=== PATIENT | female | born 1945 | race Caucasian/White ===

== ENCOUNTER 2019-02-27 05:43 | Day surgery (SDC) | payer MEDICARE ==
[2019-02-25 08:54] VITALS: BP 135/98
[2019-02-25 09:08] LABS: BASOPHILS % (AUTO) 0.4 % (0.0-5.0); EOSINOPHILS % (AUTO) 1.4 % (0.0-8.0); HEMATOCRIT 41.1 % (36-48); MEAN CORPUSCULAR HEMOGLOBIN 31.4 pg (27.0-33.0); MEAN CORPUSCULAR HGB CONC 32.1 g/dL (32.0-36.0); MEAN CORPUSCULAR VOLUME 97.6 fL (79-99); MONOCYTES % (AUTO) 9.4 % (3.0-13.0); NEUTROPHILS % (AUTO) 68.5 % (40.0-77.0); PLATELET COUNT (AUTO) 189 K/uL (130-400); RED BLOOD CELL COUNT(AUTO) 4.21 MIL/uL (4.00-5.50); RED CELL DISTRIBUTION WIDTH 13.8 % (11.0-15.5); WHITE BLOOD COUNT (AUTO) 6.9 K/uL (4.8-10.8)
[2019-02-25 09:26] LABS: INR 1.1 (0.85-1.15); PARTIAL THROMBOPLASTIN TIME 27.7 SEC (26.3-35.5); PROTHROMBIN TIME 11.5 SEC (9.6-11.6)
[2019-02-25 09:37] LABS: CREATININE 1.4 mg/dL (0.5-1.5); POTASSIUM 4.8 mmol/L (3.5-5.1)
--- NOTE | 2019-02-26 13:08 | NUR ---
labs abnormal bun/crea reported to DR. Dubon. message left with Viri. no further orders given.
[2019-02-27] VITALS (8 sets, daily range): BP systolic 101–130; BP diastolic 41–90
[~2019-02-27] VITALS: Ht 149.9 cm; Wt 57.6 kg
[~2019-02-27 05:43] MED LIST: AEC81 PO; APIX5TAB PO; LISI10TA7 PO; METO25TA6 PO; SIMV10TA97 PO
[2019-02-27] MEDS ORDERED: SODIUM CHLORIDE 0.9% 1000ML 1,000 ML IV ONE (06:10)
--- NOTE | 2019-02-27 07:09 | NUR ---
PROCEDURE PT HERE FOR PROCEDURE. HEART RATE OF 128. ASYMPTOMATIC. DENIES ANY PAIN, SOB. AT BEDSIDE.
[2019-02-27] MEDS ORDERED: LIDOCAINE HCL 2% 20ML ONE (10:31)
[2019-02-27] MEDS ORDERED: HEPARIN SODIUM 1000UNIT/ML 10ML VIAL ONE (10:31)
[2019-02-27] MEDS ORDERED: MIDAZOLAM HCL 1 MG/ML 2ML VIAL ONE ×2 (10:49→11:22)
[2019-02-27] MEDS ORDERED: MEPERIDINE-PF 25 MG/ML SYG ONE ×2 (10:49→11:22)
--- NOTE | 2019-02-27 13:10 | NUR ---
POST RECEIVED PT FROM LAST PATTERN GRADER. S/P SUCCESSFUL ATRIAL FLUTTER ABLATION, RIGHT GROIN WITH DRESSING DRY AND INTACT, SEE POST CATH ASSEMENT. VS STABLE ON ARRIVAL. PT INSTRUCTED TO KEEP BEDREST. PLAN OF CARE DISCUSS WITH PATIENT/SPOUSE. BOTH VERBALIZED UNDERSTANDING. CALL LIGHT WITHIN REACH, WILL CONTINUE TO MONITOR SPOUSE AT BEDSIDE
--- NOTE | 2019-02-27 14:16 | NUR ---
REPORT REPORT GIVEN TO Chelsea MANE RN TO RESUME CARE OF PATIENT
--- NOTE | 2019-02-27 15:56 | NUR ---
DISCHARGE INSTRUCTIONS DISCHARGE INSTRUCTIONS PROVIDED TO PATIENT AND PATIENT'S SPOUSE. HANDOUTS PROVIDED CARDIAC ABLATION, INSTRUCTED TO CALL DR ADAMS OFFICE FOR FOLLOW UP APPOINTMENT IN 2 WEEKS, SPOUSE VERBALIZED UNDERSTANDING. ALL QUESTIONS/CONCERNS ADDRESSED. INSTRUCTED TO SHOWER IN 24 HOURS AND REMOVE DRESSING IN 24 HOURS.
--- NOTE | 2019-02-27 16:20 | NUR ---
DISCHARGE PATIENT DISCHARGED FROM FACILITY VIA WHEELCHAIR, PATIENT ASSISTED INTO PRIVATE VEHICLE DRIVEN BY SPOUSE.
[2019-02-27] MEDS ORDERED: METOPROLOL TARTRATE 25 MG TAB PO SCH (21:00)
[2019-02-27] MEDS ORDERED: ASPIRIN 81 MG EC TAB PO SCH (21:00)
[2019-02-27] MEDS ORDERED: APIXABAN 5 MG TABLET PO SCH (21:00)
[2019-02-27] MEDS ORDERED: SIMVASTATIN 10 MG TABLET PO SCH (21:00)
[2019-02-27] MEDS ORDERED: LISINOPRIL 10 MG TABLET PO SCH (21:00)
== END 2019-02-27 16:20 | disposition home or self-care (01) ==
LOC: DAH 05:43
PROVIDERS: ATTEND Internal Medicine Cardiovascular Disease
DX: I48.3 Typical atrial flutter (principal); Z88.5 Allergy status to narcotic agent; Z79.01 Long term (current) use of anticoagulants; Z79.82 Long term (current) use of aspirin; Z79.899 Other long term (current) drug therapy
CPT/HCPCS: 36415; 80048; 85025; 85610; 85730; 93005; 93613; 93621; 93653; A4215; A4216; A4221; A4222; A4223 ×3; A4606; A4649 ×2; A4663; C1730; C1732; C1894 ×2; J1644 ×2; J2175 ×2; J2250 ×2; J3490; J7030; 99156; 99157

== ENCOUNTER 2019-04-02 09:26 | Day surgery (SDC) | payer MEDICARE ==
[2019-04-01 12:10] LABS: BASOPHILS % (AUTO) 0.6 % (0.0-5.0); EOSINOPHILS % (AUTO) 0.9 % (0.0-8.0); HEMATOCRIT 37.5 % (36-48); LYMPHOCYTES % (AUTO) 15.9 % (21.0-51.0); MEAN CORPUSCULAR HEMOGLOBIN 31.7 pg (27.0-33.0); MEAN CORPUSCULAR VOLUME 98.9 fL (79-99); NEUTROPHILS % (AUTO) 70.2 % (40.0-77.0); PLATELET COUNT (AUTO) 185 K/uL (130-400); RED BLOOD CELL COUNT(AUTO) 3.79 MIL/uL (4.00-5.50); RED CELL DISTRIBUTION WIDTH 13.8 % (11.0-15.5)
[2019-04-01 12:14] VITALS: BP 117/72
[2019-04-01 12:23] LABS: POTASSIUM 4.8 mmol/L (3.5-5.1)
[2019-04-01 12:26] LABS: INR 1.1 (0.85-1.15); PARTIAL THROMBOPLASTIN TIME 27.3 SEC (26.3-35.5); PROTHROMBIN TIME 11.5 SEC (9.6-11.6)
--- NOTE | 2019-04-01 14:40 | NUR ---
RE: ABNORMAL LABS INFORMED KALIA CUNNINGHAM REGARDING BUN 40 CREAT 2.0. NO NEW ORDERS, OK TO PROCEED WITH SCHEDULED PROCEDURE.
[~2019-04-02] VITALS: Ht 149.9 cm; Wt 58.1 kg
[~2019-04-02 09:26] MED LIST changes: +DRON400T2 PO; -LISI10TA7 PO; +SODIUM CHLORIDE 0.9% 1000ML 1,000 ML IV SCH; +[UNRECOGNIZED DRUG - OTHER] PO
[2019-04-02 10:30] VITALS: BP 137/75
--- NOTE | 2019-04-02 11:30 | NUR ---
DR. ADAMS CAME IN TO SEE PT. FOR CARDIOVERSION, PER DR ADAMS PT IS IN SINUS RHYTHM AFTER LOOKING AT EKG AND MONITOR. NO CARDIOVERSION NEEDED. PT WILL BE GOING HOME.
[2019-04-02] MEDS ORDERED: PROPOFOL 10 MG/ML 20ML VIAL IV ONE (11:38)
[2019-04-02] MEDS ORDERED: EPINEPHRINE 1 MG/ML AMPULE ONE (11:39)
[2019-04-02] MEDS ORDERED: LIDOCAINE HCL MPF 1% 5ML VIAL ONE (11:39)
--- NOTE | 2019-04-02 12:30 | NUR ---
PT. WENT HOME VIA WHEELCHAIR IN PVT CAR, STABLE IN SR WITH D/C INSTRUCTIONS GIVEN TO SPOUSE WITH F/U APPT.
[2019-04-02] MEDS ORDERED: ROPIVACAINE 0.5% 5MG/ML 30ML IJ ONE (14:10)
== END 2019-04-02 12:30 ==
LOC: DAH 09:26
PROVIDERS: ATTEND Internal Medicine Cardiovascular Disease
DX: I48.4 Atypical atrial flutter (principal); I25.10 Atherosclerotic heart disease of native coronary artery without angina pectoris; I42.8 Other cardiomyopathies; Z53.8 Procedure and treatment not carried out for other reasons; Z88.5 Allergy status to narcotic agent; Z88.8 Allergy status to other drugs, medicaments and biological substances; Z79.899 Other long term (current) drug therapy; Z79.82 Long term (current) use of aspirin; Z79.01 Long term (current) use of anticoagulants
CPT/HCPCS: 36415; 80048; 85025; 85610; 85730; 93005; A4215; A4216; A4221; A4222; A4223 ×3; A4606; A4663; J0171; J2704; J2795; J3490

== ENCOUNTER → 2020-02-10 | Outpatient (CLI) | payer MEDICARE ==
[~2020-02-10] VITALS: Ht 149.9 cm; Wt 52.6 kg
[~2020-02-10] MED LIST changes: +LISI-617 PO; -SODIUM CHLORIDE 0.9% 1000ML 1,000 ML IV SCH
[2020-02-10 11:52] LABS: BASOPHILS % (AUTO) 0.8 % (0.0-5.0); LYMPHOCYTES % (AUTO) 26.4 % (21.0-51.0); MEAN CORPUSCULAR HEMOGLOBIN 32.2 pg (27.0-33.0); MEAN CORPUSCULAR VOLUME 100.5 fL (79-99); MONOCYTES % (AUTO) 14.5 % (3.0-13.0); NEUTROPHILS % (AUTO) 55.9 % (40.0-77.0); PLATELET COUNT (AUTO) 190 K/uL (130-400); RED BLOOD CELL COUNT(AUTO) 3.98 MIL/uL (4.00-5.50); RED CELL DISTRIBUTION WIDTH 13.4 % (11.0-15.5); WHITE BLOOD COUNT (AUTO) 5.1 K/uL (4.8-10.8)
[2020-02-10 12:01] LABS: CREATININE 1.5 mg/dL (0.5-1.5); POTASSIUM 4.5 mmol/L (3.5-5.1)
[2020-02-10 12:49] LABS: INR 1.07 (0.85-1.15); PARTIAL THROMBOPLASTIN TIME 28.5 SEC (26.3-35.5); PROTHROMBIN TIME 11.5 SEC (9.6-11.6)
== END | disposition home or self-care (01) ==
LOC: DAH 10:53 → EDSTATUS 12:00
PROVIDERS: ATTEND Internal Medicine Cardiovascular Disease
DX: Z01.810 Encounter for preprocedural cardiovascular examination (principal); U07.1 COVID-19; I48.4 Atypical atrial flutter; I25.10 Atherosclerotic heart disease of native coronary artery without angina pectoris; Z88.8 Allergy status to other drugs, medicaments and biological substances; Z79.899 Other long term (current) drug therapy; Z79.82 Long term (current) use of aspirin; Z79.01 Long term (current) use of anticoagulants; Z95.5 Presence of coronary angioplasty implant and graft
CPT/HCPCS: 36415; 80048; 85025; 85610; 85730; C9803; U0003

== ENCOUNTER 2020-03-04 06:20 | Day surgery (SDC) | payer MEDICARE ==
[2020-02-29 14:00] VITALS: BP 139/90
[2020-02-29 14:21] LABS: BASOPHILS % (AUTO) 0.9 % (0.0-5.0); EOSINOPHILS % (AUTO) 1.1 % (0.0-8.0); HEMATOCRIT 44.4 % (36-48); LYMPHOCYTES % (AUTO) 24.1 % (21.0-51.0); MEAN CORPUSCULAR HEMOGLOBIN 30.9 pg (27.0-33.0); MEAN CORPUSCULAR HGB CONC 31.8 g/dL (32.0-36.0); MEAN CORPUSCULAR VOLUME 97.4 fL (79-99); MONOCYTES % (AUTO) 9.7 % (3.0-13.0); NEUTROPHILS % (AUTO) 64.1 % (40.0-77.0); PLATELET COUNT (AUTO) 216 K/uL (130-400); RED BLOOD CELL COUNT(AUTO) 4.56 MIL/uL (4.00-5.50); RED CELL DISTRIBUTION WIDTH 12.7 % (11.0-15.5)
[2020-02-29 14:27] LABS: CREATININE 1.7 mg/dL (0.5-1.5); POTASSIUM 4.6 mmol/L (3.5-5.1)
[2020-02-29 14:36] LABS: INR 1.07 (0.85-1.15); PROTHROMBIN TIME 11.4 SEC (9.6-11.6)
[2020-02-29 14:37] LABS: PARTIAL THROMBOPLASTIN TIME 28.2 SEC (26.3-35.5)
--- NOTE | 2020-03-03 08:57 | NUR ---
abnormal lab: notified shannan at dr. man's office of abnormal bun 33, and creatine 10.7. will notify dr. man and return call if orders received.
[~2020-03-04] VITALS: Ht 149.9 cm; Wt 49.9 kg
[2020-03-04] VITALS (9 sets, daily range): BP systolic 107–135; BP diastolic 64–81
[~2020-03-04 06:20] MED LIST changes: -METO25TA6 PO; +SODIUM CHLORIDE 0.9% 1000ML 1,000 ML IV SCH; -[UNRECOGNIZED DRUG - OTHER] PO
[2020-03-04] MEDS ORDERED: PROPOFOL 10 MG/ML 20ML VIAL IV ONE (08:04)
[2020-03-04] MEDS ORDERED: EPHEDRINE SULFATE 50 MG/ML AMPULE ONE (08:05)
--- NOTE | 2020-03-04 08:13 | NUR ---
CARDIOVERSION 0813 TIME OUT DONE IN ROOM WITH DR ADAMS AND ANESTHESIA (TETE VELÁSQUEZ). PROCEDURE VERIFIED WITH PATIENT. 0814 FIRST DOSE OF ANESTHESIA MEDICATION DELIVERED BY TETE VELÁSQUEZ VIA IV PUSH. PATIENT TOLERATED WELL. [address] ADAMS (50 JOULES) 0816 PROCEDURE END TIME. 0820 DR ADAMS OUT OF THE ROOM 0823 ANESTHESIA END TIME. TETE OUT OF THE ROOM. PATIENT RESTING COMFORTABLY. VITAL SIGNS STABLE, RESPONDS TO VERBAL, DROWSY.
--- NOTE | 2020-03-04 08:23 | NUR ---
RECOVERY STARTED FOR CARDIOVERSION PROCEDURE 0853 PATIENT FULLY RECOVERED. AAOX3, VITAL SIGNS STABLE, DENIES ANY PAIN AT THIS TIME. PATIENT'S SPOUSE IN ROOM WITH HER.
--- NOTE | 2020-03-04 09:25 | NUR ---
PATIENT DISCHARGED FROM FACILITY VIA WHEELCHAIR BY NURSE AND ASSISTED INTO PRIVATE VEHICLE DRIVEN BY SPOUSE
== END 2020-03-04 08:25 | disposition home or self-care (01) ==
LOC: DAH 06:20
PROVIDERS: ATTEND Internal Medicine Cardiovascular Disease
DX: I48.4 Atypical atrial flutter (principal); I47.1 Supraventricular tachycardia; I10 Essential (primary) hypertension; I21.9 Acute myocardial infarction, unspecified; I25.10 Atherosclerotic heart disease of native coronary artery without angina pectoris; Z95.1 Presence of aortocoronary bypass graft; Z79.01 Long term (current) use of anticoagulants; Z79.82 Long term (current) use of aspirin; Z79.899 Other long term (current) drug therapy; Z20.828 Contact with and (suspected) exposure to other viral communicable diseases
CPT/HCPCS: 36415; 80048; 85025; 85610; 85730; 92960; 93005 ×2; A4215; A4216; A4221; A4222; A4223 ×3; A4606; A4615; A4663; C9803; J2704; J7030; U0003; 99156; J3490

== ENCOUNTER 2020-05-31 06:23 | Day surgery (SDC) | payer MEDICARE ==
[2020-05-27 15:00] VITALS: BP 139/83
[2020-05-27 16:16] LABS: EOSINOPHILS % (AUTO) 1.7 % (0.0-8.0); LYMPHOCYTES % (AUTO) 31.1 % (21.0-51.0); MEAN CORPUSCULAR HEMOGLOBIN 31.5 pg (27.0-33.0); MEAN CORPUSCULAR HGB CONC 32.5 g/dL (32.0-36.0); MONOCYTES % (AUTO) 11.3 % (3.0-13.0); NEUTROPHILS % (AUTO) 54.7 % (40.0-77.0); PLATELET COUNT (AUTO) 184 K/uL (130-400); RED BLOOD CELL COUNT(AUTO) 3.71 MIL/uL (4.00-5.50); RED CELL DISTRIBUTION WIDTH 14.4 % (11.0-15.5)
[2020-05-27 16:44] LABS: CREATININE 1.6 mg/dL (0.5-1.5); POTASSIUM 4.5 mmol/L (3.5-5.1); THYROID STIMULATING HORMONE 1.77 uIU/mL (0.36-3.74)
[2020-05-31] VITALS (9 sets, daily range): BP systolic 108–149; BP diastolic 60–82
[~2020-05-31] VITALS: Ht 148.8 cm; Wt 50.9 kg
[~2020-05-31 06:23] MED LIST changes: -LISI-617 PO; +LISI-809 PO
[2020-05-31] MEDS ORDERED: PROPOFOL 10 MG/ML 20ML VIAL IV ONE (07:47)
== END 2020-05-31 10:10 ==
LOC: DAH 06:23
PROVIDERS: ATTEND Internal Medicine Cardiovascular Disease
DX: I48.4 Atypical atrial flutter (principal); E78.5 Hyperlipidemia, unspecified; I45.10 Unspecified right bundle-branch block; I25.10 Atherosclerotic heart disease of native coronary artery without angina pectoris; Z79.01 Long term (current) use of anticoagulants; Z79.82 Long term (current) use of aspirin; Z79.899 Other long term (current) drug therapy; Z20.828 Contact with and (suspected) exposure to other viral communicable diseases
CPT/HCPCS: 36415; 80048; 83735; 84443; 85025; 92960; 93005 ×2; A4215; A4216; A4221; A4222; A4223 ×3; A4606; A4663; C9803; J2704; J7030; U0003

== ENCOUNTER 2020-06-20 06:27 | Inpatient (IN) | payer MEDICARE ==
[~2020-06-20] VITALS: Ht 149.9 cm; Wt 49.9 kg
[~2020-06-20 06:27] MED LIST changes: -DRON400T2 PO; +DRON400T7 PO; -LISI-809 PO; +LISI5TAB21 PO; -SODIUM CHLORIDE 0.9% 1000ML 1,000 ML IV SCH
[2020-06-20 06:57] LABS: BASOPHILS % (AUTO) 1.5 % (0.0-5.0); EOSINOPHILS % (AUTO) 2.9 % (0.0-8.0); HEMATOCRIT 38.3 % (36-48); LYMPHOCYTES % (AUTO) 32.8 % (21.0-51.0); MEAN CORPUSCULAR HEMOGLOBIN 31.6 pg (27.0-33.0); MEAN CORPUSCULAR HGB CONC 33.2 g/dL (32.0-36.0); MEAN CORPUSCULAR VOLUME 95.3 fL (79-99); MONOCYTES % (AUTO) 10.6 % (3.0-13.0); PLATELET COUNT (AUTO) 189 K/uL (130-400); RED BLOOD CELL COUNT(AUTO) 4.02 MIL/uL (4.00-5.50); RED CELL DISTRIBUTION WIDTH 14.2 % (11.0-15.5); WHITE BLOOD COUNT (AUTO) 5.2 K/uL (4.8-10.8)
[2020-06-20] MEDS ORDERED: AMIODARONE 900MG VIAL 450 MG in DEXTROSE 5%-WATER 250 ML IV SCH (07:15)
[2020-06-20] MEDS ORDERED: AMIODARONE 900MG VIAL 360 MG in DEXTROSE 5%-WATER 200 ML IV SCH (07:15)
[2020-06-20] MEDS ORDERED: AMIODARONE 150MG VIAL 150 MG in DEXTROSE 5%-WATER 100 ML IV SCH (07:15)
[2020-06-20 07:18] LABS: ALBUMIN 3.9 g/dL (3.5-5.0); BILIRUBIN,TOTAL 0.7 mg/dL (0.2-1.0); CREATININE 1.4 mg/dL (0.5-1.5); MAGNESIUM 2.1 mg/dL (1.80-2.40); POTASSIUM 4.6 mmol/L (3.5-5.1); THYROID STIMULATING HORMONE 2.51 uIU/mL (0.36-3.74); TOTAL PROTEIN, SERUM 7.5 g/dL (6.0-8.3)
[2020-06-20] MEDS ORDERED: ACETAMINOPHEN 325 MG TAB PO PRN (07:30)
[2020-06-20] MEDS ORDERED: ONDANSETRON 4MG INJ IVP PRN (07:30)
[2020-06-20] MEDS: FAMOTIDINE 20MG VIAL IV SCH (09:00)
[2020-06-20 23:23] VITALS: BP 160/109
[2020-06-21 04:39] VITALS: BP 138/96
[2020-06-21 05:00] LABS: BASOPHILS % (AUTO) 1.1 % (0.0-5.0); EOSINOPHILS % (AUTO) 2.7 % (0.0-8.0); HEMATOCRIT 37.1 % (36-48); LYMPHOCYTES % (AUTO) 27.2 % (21.0-51.0); MEAN CORPUSCULAR HGB CONC 32.9 g/dL (32.0-36.0); MEAN CORPUSCULAR VOLUME 94.4 fL (79-99); MONOCYTES % (AUTO) 11.2 % (3.0-13.0); NEUTROPHILS % (AUTO) 57.6 % (40.0-77.0); PLATELET COUNT (AUTO) 190 K/uL (130-400); RED BLOOD CELL COUNT(AUTO) 3.93 MIL/uL (4.00-5.50); RED CELL DISTRIBUTION WIDTH 13.8 % (11.0-15.5); WHITE BLOOD COUNT (AUTO) 5.6 K/uL (4.8-10.8)
[2020-06-21 05:33] LABS: CREATININE 1.4 mg/dL (0.5-1.5); MAGNESIUM 1.9 mg/dL (1.80-2.40); POTASSIUM 4.1 mmol/L (3.5-5.1); THYROID STIMULATING HORMONE 2.39 uIU/mL (0.36-3.74)
[2020-06-21] MEDS ORDERED: PROPOFOL 10 MG/ML 20ML VIAL IV ONE (07:55)
[2020-06-21] MEDS ORDERED: ATROPINE 1MG SYG IVP ONE (07:56)
[2020-06-21] MEDS ORDERED: PHENYLEPHRINE HCL 10 MG/ML 1ML VIAL IV ONE (07:57)
[2020-06-21] MEDS: FAMOTIDINE 20MG VIAL IV SCH (08:05)
[2020-06-21] MEDS ORDERED: ENOXAPARIN SODIUM 60 MG/0.6 ML SQ SCH (08:27)
[2020-06-21 08:56] VITALS: BP 136/98
[2020-06-21] MEDS ORDERED: APIXABAN 5 MG TABLET PO SCH (09:00)
[2020-06-21 12:25] VITALS: BP 86/44
[2020-06-21 16:43] VITALS: BP 112/53
[2020-06-21] MEDS ORDERED: LISINOPRIL 5 MG TABLET PO SCH (21:00)
[2020-06-21] MEDS ORDERED: ASPIRIN 81 MG EC TAB PO SCH (21:00)
[2020-06-21] MEDS ORDERED: SIMVASTATIN 10 MG TABLET PO SCH (21:00)
== END 2020-06-21 16:54 | disposition home or self-care (01) | DRG 310 ==
LOC: EDH 06:27 → EDHIP 07:12 → 4DH 22:50
PROVIDERS: ADMIT Hospitalist; ATTEND Hospitalist
PROC: 5A2204Z Restoration of Cardiac Rhythm, Single (ICD-10-PCS; principal; 2020-06-21)
DX: I48.4 Atypical atrial flutter (principal); I25.10 Atherosclerotic heart disease of native coronary artery without angina pectoris; E78.5 Hyperlipidemia, unspecified; I42.9 Cardiomyopathy, unspecified; Z86.74 Personal history of sudden cardiac arrest; Z87.74 Personal history of (corrected) congenital malformations of heart and circulatory system; I25.2 Old myocardial infarction; Z98.891 History of uterine scar from previous surgery; Z79.899 Other long term (current) drug therapy; Z79.82 Long term (current) use of aspirin; Z79.01 Long term (current) use of anticoagulants; Z88.5 Allergy status to narcotic agent; Z95.5 Presence of coronary angioplasty implant and graft; Z87.828 Personal history of other (healed) physical injury and trauma
CPT/HCPCS: 36415; 80048; 80053; 83735; 84443; 85025; 93005; G0378; J0282; J0461; J1650; J2370; J2405; J2704; J7060

== ENCOUNTER 2021-03-29 06:52 | Day surgery (SDC) | payer MEDICARE ==
[2021-03-27 09:10] LABS: EOSINOPHILS % (AUTO) 1.5 % (0.0-8.0); HEMATOCRIT 42.6 % (36-48); LYMPHOCYTES % (AUTO) 25.6 % (21.0-51.0); MEAN CORPUSCULAR HEMOGLOBIN 32.4 pg (27.0-33.0); MEAN CORPUSCULAR HGB CONC 32.9 g/dL (32.0-36.0); MEAN CORPUSCULAR VOLUME 98.6 fL (79-99); MONOCYTES % (AUTO) 8.5 % (3.0-13.0); NEUTROPHILS % (AUTO) 62.9 % (40.0-77.0); PLATELET COUNT (AUTO) 176 K/uL (130-400); RED BLOOD CELL COUNT(AUTO) 4.32 MIL/uL (4.00-5.50); RED CELL DISTRIBUTION WIDTH 13.3 % (11.0-15.5)
[2021-03-27 09:25] LABS: INR 1.08 (0.85-1.15); PROTHROMBIN TIME 11.7 SEC (9.6-11.6)
[2021-03-27 09:26] LABS: PARTIAL THROMBOPLASTIN TIME 29.7 SEC (26.3-35.5)
[2021-03-27 09:55] LABS: CREATININE 1.6 mg/dL (0.5-1.5); POTASSIUM 4.7 mmol/L (3.5-5.1)
[2021-03-28 12:23] VITALS: BP 133/87
[~2021-03-29] VITALS: Ht 149.9 cm; Wt 48.3 kg
[2021-03-29] VITALS (10 sets, daily range): BP systolic 116–154; BP diastolic 66–91
[~2021-03-29 06:52] MED LIST changes: -AEC81 PO; +AMIO200T68 PO; -DRON400T7 PO; +PRAV10TA39 PO; -SIMV10TA97 PO
[2021-03-29] MEDS: 0.9%NACL 1000ML 1,000 ML IV ONE (07:57)
[2021-03-29] MEDS ORDERED: IODIXANOL 320 MG/ML 100 ML VIAL ONE (08:17)
[2021-03-29] MEDS ORDERED: CEFAZOLIN SODIUM 1 GM VIAL ONE (08:17)
[2021-03-29] MEDS ORDERED: MEPERIDINE-PF 50 MG/ML SYG ONE (08:18)
[2021-03-29] MEDS ORDERED: LIDOCAINE HCL 1% MDV 50ML VIAL ONE (08:18)
[2021-03-29] MEDS ORDERED: MIDAZOLAM HCL 1 MG/ML 2ML VIAL ONE (08:18)
[2021-03-29] MEDS ORDERED: BUPIVACAINE/PF 0.25% 30ML VIAL IJ ONE (08:30)
[2021-03-29] MEDS ORDERED: ACETAMINOPHEN WITH CODEINE 1 TAB TAB PO PRN (10:00)
[2021-03-29] MEDS ORDERED: TRAM50TA4 PO ×2 (10:02→10:06)
== END 2021-03-29 14:27 | disposition home or self-care (01) ==
LOC: DAH 06:52
PROVIDERS: ATTEND Internal Medicine Cardiovascular Disease
DX: I48.4 Atypical atrial flutter (principal); I49.5 Sick sinus syndrome; I48.19 Other persistent atrial fibrillation; I25.10 Atherosclerotic heart disease of native coronary artery without angina pectoris; Z79.01 Long term (current) use of anticoagulants; Z79.82 Long term (current) use of aspirin; Z79.899 Other long term (current) drug therapy
CPT/HCPCS: 33208; 36415; 71045; 80048; 85025; 85610; 85730; A4215; A4216; A4221; A4222; A4223 ×3; A4606; A4663; C1785; C1894; C1898 ×2; J0690; J2175; J2250; J3490 ×2; J7030; Q9967; 99156; 99157

== ENCOUNTER 2021-05-01 07:19 | Day surgery (SDC) | payer MEDICARE ==
[2021-04-27 09:22] LABS: BASOPHILS % (AUTO) 0.5 % (0.0-5.0); EOSINOPHILS % (AUTO) 0.3 % (0.0-8.0); HEMATOCRIT 36.5 % (36-48); LYMPHOCYTES % (AUTO) 14.2 % (21.0-51.0); MEAN CORPUSCULAR HEMOGLOBIN 31.6 pg (27.0-33.0); MEAN CORPUSCULAR HGB CONC 31.5 g/dL (32.0-36.0); MEAN CORPUSCULAR VOLUME 100.3 fL (79-99); MONOCYTES % (AUTO) 12.9 % (3.0-13.0); NEUTROPHILS % (AUTO) 71.9 % (40.0-77.0); PLATELET COUNT (AUTO) 150 K/uL (130-400); RED BLOOD CELL COUNT(AUTO) 3.64 MIL/uL (4.00-5.50); RED CELL DISTRIBUTION WIDTH 14.3 % (11.0-15.5); WHITE BLOOD COUNT (AUTO) 6.3 K/uL (4.8-10.8)
[2021-04-27 09:33] LABS: CREATININE 1.7 mg/dL (0.5-1.5); POTASSIUM 4.6 mmol/L (3.5-5.1)
[2021-04-27 09:35] LABS: INR 1.13 (0.85-1.15); PROTHROMBIN TIME 12.2 SEC (9.6-11.6)
[2021-04-27 09:37] LABS: PARTIAL THROMBOPLASTIN TIME 29.7 SEC (26.3-35.5)
[2021-04-27 16:25] VITALS: BP 137/78
[2021-05-01] VITALS (15 sets, daily range): BP systolic 135–165; BP diastolic 73–98
[~2021-05-01] VITALS: Ht 149.9 cm; Wt 50.3 kg
[~2021-05-01 07:19] MED LIST changes: +0.9%NACL 1000ML 1,000 ML IV SCH
[2021-05-01] MEDS ORDERED: LIDOCAINE PF 100MG/5ML (2%) SYRINGE 5ML ONE (08:55)
[2021-05-01] MEDS ORDERED: PROPOFOL 10 MG/ML 20ML VIAL IV ONE (08:55)
[2021-05-01] MEDS ORDERED: AMIO200T68 PO (10:14)
== END 2021-05-01 10:35 | disposition home or self-care (01) ==
LOC: DAH 07:19
PROVIDERS: ATTEND Internal Medicine Cardiovascular Disease
DX: I48.19 Other persistent atrial fibrillation (principal); I25.2 Old myocardial infarction; I45.10 Unspecified right bundle-branch block; I42.9 Cardiomyopathy, unspecified; Z95.0 Presence of cardiac pacemaker; Z95.5 Presence of coronary angioplasty implant and graft; Z79.899 Other long term (current) drug therapy; Z79.01 Long term (current) use of anticoagulants; Z79.82 Long term (current) use of aspirin; Z98.890 Other specified postprocedural states
CPT/HCPCS: 36415; 80048; 85025; 85610; 85730; 92960; 93005 ×2; A4215; A4216; A4221; A4222; A4223 ×3; A4606; A4663; J2001; J2704

== ENCOUNTER → 2024-01-21 | Outpatient (CLI) | payer MEDICARE ==
[~2024-01-21] MED LIST changes: -0.9%NACL 1000ML 1,000 ML IV SCH
[2024-01-21 12:35] LABS: ALBUMIN 3.4 g/dL (3.5-5.0); BILIRUBIN,TOTAL 0.4 mg/dL (0.2-1.0); CREATININE 1.6 mg/dL (0.5-1.0); POTASSIUM 4.7 mmol/L (3.5-5.1); THYROID STIMULATING HORMONE 1.59 uIU/mL (0.36-3.74); TOTAL PROTEIN, SERUM 7.2 g/dL (6.0-8.3)
== END | disposition home or self-care (01) ==
LOC: LAB 09:22
PROVIDERS: ATTEND Internal Medicine Cardiovascular Disease
DX: I10 Essential (primary) hypertension (principal)
CPT/HCPCS: 36415; 80053; 84443